=== PATIENT | female | born 1975 | race Caucasian/White ===

== ENCOUNTER → 2018-02-19 | Outpatient (CLI) | payer BC ==
--- NOTE | 2018-02-20 08:37 | RADIOLOGY IMAGING REPORT ---
FACILITY: [facility] [place] PATIENT NAME: HUMPHREY PRABHAKAR : [id number] MR: [id number] V: [id number] EXAM DATE: ORDERING PHYSICIAN: SERENA DE LEÓN TECHNOLOGIST: Cammie Birmingham PROCEDURE:BILATERAL DIGITAL SCREENING MAMMOGRAM WITH CAD ASSISTED INTERPRETATION & 3D TOMOSYNTHESIS COMPARISON:None this is the patient's baseline mammogram. INDICATIONS:screening FINDINGS: Moderately dense mildly heterogeneous fibroglandular tissue is seen throughout the breasts. There is no demonstration of malignant appearing mass, malignant appearing calcifications or other secondary sign of malignancy in either breast. DIAGNOSTIC CATEGORY 1--NEGATIVE. RECOMMENDATIONS: ROUTINE MAMMOGRAM AND CLINICAL EVALUATION. IMPRESSION: BIRADS 1: Negative. No significant abnormality is seen. Dictated by: Vivi Dacosta M.D. on 02/19/2018 at 14:36 Transcribed by: CAMILLE on 02/19/2018 at 14:43 Approved by: Vivi Dacosta M.D. on 02/20/2018 at 8:36 [facility]
== END ==
LOC: MAMO 01:02
PROVIDERS: ATTEND Nurse Practitioner Family
DX: Z12.31 Encounter for screening mammogram for malignant neoplasm of breast (principal)
CPT/HCPCS: 77063; 77067